=== PATIENT | male | born 1950 | race Caucasian/White ===

== ENCOUNTER → 2016-11-01 | Outpatient (CLI) | payer MEDICARE, OTHER ==
[2016-11-01 12:21] LABS: RED BLOOD COUNT 4.91 M/UL (4.20-5.50); WHITE BLOOD COUNT 6.7 K/UL (4.5-11.0)
[2016-11-01 12:40] LABS: BUN/CREATININE RATIO 15 (0-10)
== END ==
LOC: LAB 11:08
PROVIDERS: Physician Assistant
DX: R06.02 Shortness of breath (principal)
CPT/HCPCS: 36415; 71020; 80048; 85025; 85379

== ENCOUNTER → 2016-11-29 | Outpatient (CLI) | payer MEDICARE, OTHER | LOC: HEART 5 11-15 07:45 | DX: R94.31 Abnormal electrocardiogram [ECG] [EKG] (principal); E78.5 Hyperlipidemia, unspecified; I10 Essential (primary) hypertension; J44.9 Chronic obstructive pulmonary disease, unspecified; R06.02 Shortness of breath; Z87.891 Personal history of nicotine dependence | CPT/HCPCS: 78452; A9502; J2785 ==

== ENCOUNTER → 2021-06-08 | Outpatient (CLI) | payer MEDICARE, OTHER ==
[~2021-06-08] MED LIST: FISH OIL 1,0001 EACH PO; FLOMAX0.4 MG PO; GARLIC1 EAC1 PO; LISINOPRIL-HCT1 EAC1 PO; NIACIN250 MG PO; SYMBICORT 160-1 INHA INH; VENTOLIN HFA 66.7 GM INH; VITAMIN D31000 UNI1 PO; ZANTAC150 MG PO
== END ==
LOC: KOH-I 11:13
DX: Z87.891 Personal history of nicotine dependence (principal)
CPT/HCPCS: 71271

== ENCOUNTER 2021-10-25 17:59 | Emergency (ER) | payer MEDICARE, OTHER ==
[2021-10-25 18:56] LABS: HEMOGLOBIN 16.5 gm/dl (14.0-17.5); RED BLOOD COUNT 4.84 M/UL (4.20-5.50)
[2021-10-25] MEDS ORDERED: KEFLEX CAP 250250 MG PO (22:45)
== END 2021-10-25 22:58 | disposition home or self-care (01) ==
LOC: ER1 17:59
PROVIDERS: Emergency Medicine
DX: N30.01 Acute cystitis with hematuria (principal); I10 Essential (primary) hypertension; J44.9 Chronic obstructive pulmonary disease, unspecified
CPT/HCPCS: 80053; 81001; 85025; 96374; 99284; J1885